=== PATIENT | female | born 1955 | race Caucasian/White ===

== ENCOUNTER 2025-04-28 08:20 | Outpatient (CLI) | payer MEDICARE | END 2025-04-28 08:21 | disposition home or self-care (01) | LOC: RAD 08:20 | PROVIDERS: ATTEND Internal Medicine Critical Care Medicine | DX: R06.00 Dyspnea, unspecified (principal); J44.9 Chronic obstructive pulmonary disease, unspecified | CPT/HCPCS: 36415; 71046; 82103 ==

== ENCOUNTER 2025-07-21 09:02 | Outpatient (CLI) | payer MEDICARE | END 2025-07-21 09:03 | disposition home or self-care (01) | LOC: SCSMRI 09:02 | PROVIDERS: ATTEND Orthopaedic Surgery | DX: S83.282A Other tear of lateral meniscus, current injury, left knee, initial encounter (principal); S83.232A Complex tear of medial meniscus, current injury, left knee, initial encounter ==

== ENCOUNTER 2025-08-17 09:03 | Observation (INO) | payer MEDICARE ==
[2025-08-17] MEDS ORDERED: fentaNYL PF 100 MCG/2 ML SYRINGE ONE ×2 (09:58→14:14)
[2025-08-17] MEDS ORDERED: Lidocaine 1% PF 5 ML VIAL ONE (10:00)
[2025-08-17] MEDS ORDERED: Vancomycin HCl 1.5 GM VIAL ONE (10:14)
[2025-08-17] MEDS ORDERED: Tranexamic Acid 1,000 MG/10 ML VIAL ONE ×2 (10:14→13:35)
[2025-08-17] MEDS ORDERED: Ropivacaine 0.5% HCl/PF (150 MG/30 ML VIAL) ONE (10:44)
[2025-08-17] MEDS ORDERED: Glycopyrrolate 0.2 MG/ML 5 ML SYRINGE ONE (12:00)
[2025-08-17] MEDS ORDERED: PROPOFOL 200 MG/20 ML VIAL ONE (12:00)
[2025-08-17] MEDS ORDERED: Ondansetron PF 4 MG/2 ML Vial ONE (12:15)
[2025-08-17] MEDS ORDERED: CEFAZOLIN 1 GM VIAL ONE (12:18)
[2025-08-17] MEDS ORDERED: HYDROcodone/Acetaminophen 10/325 mg Tablet PO PRN (12:33)
[2025-08-17] MEDS ORDERED: Ondansetron PF 4 MG/2 ML Vial IVP PRN (12:45)
[2025-08-17] MEDS ORDERED: Ropivacaine 0.2% 550 ML 550 ML NERVE BLCK SCH (12:45)
[2025-08-17] MEDS ORDERED: diphenhydrAMINE 25 MG CAP PO PRN (13:21)
[2025-08-17] MEDS ORDERED: HYDROmorphone 2 MG/ML VIAL ONE (13:43)
[2025-08-17 15:27] VITALS: BMI 35.9
[2025-08-17] MEDS: HYDROcodone/Acetaminophen 10/325 mg Tablet PO PRN (16:44)
[2025-08-17] MEDS: Ketorolac Tromethamine 30 MG (1 mL) VIAL IVP SCH (17:57)
[2025-08-17] MEDS: Ondansetron PF 4 MG/2 ML Vial IVP PRN (17:58)
[2025-08-17] MEDS: FLU (Fluad Triv) 25-26 (65UP)PF 45 MCG/0.5 ML Syringe IM ONE (18:29)
[2025-08-17] MEDS: Aspirin 81 mg Enteric Coated Tablet PO SCH (20:43)
[2025-08-17] MEDS: Acetaminophen 325 MG TAB PO PRN (20:59)
[2025-08-17] MEDS: Vancomycin 1.5 GM / NS 500ML VIAL-2-BAG IVPB SCH (23:04)
[2025-08-18 05:45] LABS: Hematocrit 35.6 % (36.0-47.0); Hemoglobin 11.4 g/dL (12.0-16.0); Mean Corpuscular Hemoglobin 28.6 pg (27.0-31.0); Mean Corpuscular Volume 89.4 fL (78.0-98.0); Platelet Count 265 10x3/uL (130-400); Red Blood Cell (RBC) Count 3.98 mill/uL (4.20-5.40); White Blood Cell (WBC) Count 10.64 10x3/uL (4.8-10.8)
[2025-08-18] MEDS: Multivitamin W/ Minerals 1 TAB PO SCH (08:58)
[2025-08-18] MEDS: Ferrous Gluconate 324 MG TAB PO SCH (08:58)
[2025-08-18] MEDS: Senokot S 8.6-50 MG TAB PO SCH (08:59)
[2025-08-18] MEDS: Pantoprazole 40 MG DR.TAB PO PRN (08:59)
[2025-08-18 12:15] VITALS: BMI 36.1
[2025-08-18 13:50] VITALS: BP 122/76; TEMP 98.2
== END 2025-08-18 15:00 | disposition home or self-care (01) ==
LOC: SDC 09:03 → SURG A 16:17 → SDC 17:07
PROVIDERS: ADMIT Orthopaedic Surgery; ATTEND Orthopaedic Surgery
PROC: 0SRD0JZ Replacement of Left Knee Joint with Synthetic Substitute, Open Approach (ICD-10-PCS; principal; 2025-08-17)
DX: M17.12 Unilateral primary osteoarthritis, left knee (principal); E78.5 Hyperlipidemia, unspecified; Z88.0 Allergy status to penicillin; Z88.2 Allergy status to sulfonamides; Z88.1 Allergy status to other antibiotic agents; Z88.8 Allergy status to other drugs, medicaments and biological substances; Z90.49 Acquired absence of other specified parts of digestive tract; Z90.710 Acquired absence of both cervix and uterus; Z79.899 Other long term (current) drug therapy
CPT/HCPCS: 0055T; 27447; 64448; 36415; 85027; A4306; C1713; C1776; C1889; J0665; J0690; J1100; J1171; J1885; J2250; J2405; J2704; J2795; J3010; J7030